=== PATIENT | female | born 2000 | race Caucasian/White ===

== ENCOUNTER 2023-11-15 21:53 | Emergency (ER) | payer BC, OTHER ==
[~2023-11-15] VITALS: Ht 162.6 cm; Wt 44.0 kg
[2023-11-16] MEDS ORDERED: ONDANSETRON 4 MG/2 ML VIAL IV ONE (03:00)
[2023-11-16] MEDS ORDERED: VANCOMYCIN IV 1,000 MG in IV DEXTROSE 5% 250 ML IV ONE (03:00)
[2023-11-16] MEDS ORDERED: HYDROMORPHONE 1 MG/1 ML DISP.SYRIN IV ONE ×2 (03:00→05:00)
[2023-11-16] MEDS ORDERED: ONDANSETRON 4 MG/2 ML VIAL ONE (03:09)
[2023-11-16] MEDS ORDERED: VANCOMYCIN IV 200 ML ONE (03:09)
[2023-11-16] MEDS ORDERED: HYDROMORPHONE 1 MG/1 ML DISP.SYRIN ONE ×2 (03:10→04:53)
[2023-11-16 03:17] LABS: BASOPHILS % (AUTO) 0.3 % (0.0-2.0); EOSINOPHILS # (AUTO) 0.3 K/uL (0.0-0.7); HEMATOCRIT 39.3 % (31.2-41.9); HEMOGLOBIN 13.2 g/dL (10.9-14.3); LYMPHOCYTES # (AUTO) 2.5 K/uL (0.8-4.8); LYMPHOCYTES % (AUTO) 18.7 % (20.5-51.5); MEAN CORPUSCULAR HEMOGLOBIN 30.1 uug (24.7-32.8); MEAN CORPUSCULAR HGB CONC 34 g/dL (32.3-35.6); MEAN CORPUSCULAR VOLUME 89.6 fL (75.5-95.3); MONOCYTES # (AUTO) 0.7 K/uL (0.1-1.30); MONOCYTES % (AUTO) 5.4 % (0.0-11.0); NEUTROPHILS # (AUTO) 9.8 K/uL (1.8-8.9); NEUTROPHILS % (AUTO) 73.6 % (38.5-71.5); PLATELET COUNT (AUTO) 279 K/uL (179-408); RED BLOOD CELL COUNT(AUTO) 4.39 MIL/uL (3.63-4.92); RED CELL DISTRIBUTION WIDTH 13.4 % (12.3-17.7); WHITE BLOOD COUNT (AUTO) 13.3 K/uL (3.8-11.8)
[2023-11-16 03:28] LABS: DIFFERENTIAL COMMENT 1
[2023-11-16 03:34] LABS: CALCIUM 8.4 mg/dL (8.5-10.1); CREATININE 0.6 mg/dL (0.6-1.3); POTASSIUM 3.6 mmol/L (3.5-5.1)
[2023-11-16 03:39] LABS: ALBUMIN 3.7 g/dL (3.4-5.0); BILIRUBIN,TOTAL 0.4 mg/dL (0.2-1.0); TOTAL PROTEIN, SERUM 7.2 g/dL (6.4-8.2)
[2023-11-16] MEDS ORDERED: PIPERACILLIN SODIUM/TAZOBACTAM 3.375 G in IV DEXTROSE 5% 50 ML IV ONE (04:00)
[2023-11-16] MEDS ORDERED: PIPERACILLIN/TAZOBACTAM/D5W 50 ML IV ONE (04:08)
[2023-11-16] MEDS ORDERED: TDAP DIPH,PERTUSS,TET VAC/PF 0.5 ML DISP.SYRIN IM ONE ×2 (04:53→05:00)
[2023-11-16] MEDS ORDERED: diphenhydrAMINE 50 MG/1 ML VIAL ONE (05:06)
[2023-11-16] MEDS ORDERED: diphenhydrAMINE 50 MG/1 ML VIAL IV ONE (05:15)
[2023-11-16] MEDS ORDERED: IBUPROFEN 600 MG TABLET ONE (09:27)
[2023-11-16] MEDS ORDERED: IBUPROFEN 600 MG TABLET PO ONE (09:30)
[2023-11-16 10:55] VITALS: O2SAT 99
[2023-11-16] MEDS ORDERED: CLIN-118 PO (15:14)
== END 2023-11-16 16:55 | disposition left against medical advice (07) ==
LOC: ER 21:53
DX: M65.9 Synovitis and tenosynovitis, unspecified (principal); L03.113 Cellulitis of right upper limb; W54.0XXA Bitten by dog, initial encounter; Y93.89 Activity, other specified; Y92.89 Other specified places as the place of occurrence of the external cause; Y99.8 Other external cause status
CPT/HCPCS: 99284; 96365; 96375; 96367; 96366; 80053; 85025; 85610; 36415; 90715; 96376; 90471; J1200; J2405; J2543; J3370; J1170 ×2; A4606; A4663